=== PATIENT | male | born 1950 | race Caucasian/White ===

== ENCOUNTER → 2018-05-07 12:03 | Outpatient (CLI) | payer OTHER ==
--- NOTE | ~2018-05-07 | HEMODYNAMI ---
PATIENT:ALMA STAHL MEDICAL RECORD: [id number] : 46 [id number] ADMISSION DATE: 05/07/18 Generatedon:05/07/201813:21 Patient name: ALMA STAHL Patient #: [id number] SSN: : 1950 Date of study: 05/07/2018 Page: Of Hemodynamic Procedure Report Patient Data Patient Demographics First Name: ALMA Gender: Male Last Name: MARIBETH : 1950 Middle Initial: JUNIOR Age: 68 year(s) Patient #: [id number] Race: Unknown Additional ID: [id number] Contact details [address]: [address] [place] [address] State: [place] City: [place] Zip code: [address] Past Medical History Allergies Allergen Reaction Date Comments Reported Codeine 05/07/2018 Admission Admission Data Admission Date: 05/07/2018 Admission Time: 12:03 Procedure Procedure Types Cath Procedure Peripheral Cath Diagnostic Procedure Special Shopper Peripheral Procedures Miscellaneous Aspiration/Injection (Joint) Procedure Description Procedure Date Procedure Date: 05/07/2018 Procedure Start Time: 13:02 Procedure Staff Name Function Skyler Lira MD Performing Physician Natalie Mccarthy RT Manager Metrology Katiana Green RN Nurse Procedure Data Cath Procedure Fluoroscopy Diagnostic fluoroscopy Total fluoroscopy Time: 0.5 time: 0.5 min min Diagnostic fluoroscopy Total fluoroscopy dose: 7 dose: 7 mGy mGy Hemodynamics Rest Pre Cath Intra NCS Post Cath Procedure Log Time Note 12:30:02 Time tracking: Regular hours (M-F 7:00 - 5:00) 13:02:10 Patient allergic to Codeine 13:02:17 Is patient on blood thinner?No 13:02:24 Physician arrived 13:02:25 --------ALL STOP TIME OUT------ 13:: Final Timeout: patient, procedure, and site verified with staff and physician. All members of the team are in agreement. 13::34 Procedure started. 13::34 Full Disclosure recording started 13:19:26 Procedure ended.(Physican Out) 13:19:32 Fluoroscopy time 00.50 minutes. 13:19:36 Fluoroscopy dose: 7 mGy 13:19:36 Flurop Dose total: 7 Signature Audit [place] Stage Time Signature Unsigned Intra-Procedure 05/07/2018 Natalie Mccarthy 1:21:06 PM RT(R) [facility] [address] [place] [address]
== END | disposition home or self-care (01) ==
LOC: D.RAD 12:03
PROVIDERS: ATTEND Clinical Nurse Specialist Family Health
DX: M16.11 Unilateral primary osteoarthritis, right hip (principal)

== ENCOUNTER → 2019-06-28 10:14 | Outpatient (CLI) | payer OTHER | END | disposition home or self-care (01) | LOC: D.MRI 10:14 | PROVIDERS: ATTEND Clinical Nurse Specialist Family Health | DX: M54.16 Radiculopathy, lumbar region (principal) ==

== ENCOUNTER 2019-08-25 12:43 | Day surgery (SDC) | payer OTHER ==
[~2019-08-25] VITALS: Ht 180.3 cm; Wt 93.4 kg
--- NOTE | ~2019-08-25 | OP ---
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 PROCEDURE: Right L3-L4 lumbar laminotomy, medial facetectomy and foraminotomy with METRx retractor with discectomy and disc herniation at L3-L4 on the right. SURGEON: Alexandru Mccloud MD INTERIOR DECORATOR PAINTING: Vj Holland APN DESCRIPTION AND TECHNIQUE: After induction of general endotracheal anesthesia, the patient was rolled prone on the Ever frame. Lumbar spine was prepped and draped in usual sterile fashion. Fluoroscopic x-ray and spinal needle localized the L3-L4 interspace on the right side. After infiltration of 1:100,000 epinephrine and 1% lidocaine, a stab incision was created with a #11 blade. Series of dilators were used to advance a METRx retractor at the L3-L4 interspace on the right side. Flow was confirmed with fluoroscopic x-ray. A microscope and Midas Edison drill were used to perform a laminotomy, medial facetectomy and foraminotomy at L3-L4 on the right. Hypertrophied ligamentum flavum was removed with Cloward rongeurs. There was a large foraminal disc herniation within the foramen on the right, between L3 and L4. The subligamentous disc herniation as well as foraminal disc material was removed in a piecemeal fashion. Following this, the L3 nerve roots decompressed well. Meticulous hemostasis was maintained throughout the wound. The wound was irrigated with copious amounts of Ancef irrigant solution. The fascia was closed with 2-0 Vicryl suture, the subdermal layer was closed with 3-0 Vicryl suture. The skin was closed with suha. A sterile dressing was applied to the wound. Vj Holland APN was present throughout the entirety of the procedure and assisted with hemostasis, retraction, and wound closure. TRANSINT:[id number] Voice Confirmation ID: [id number] DOCUMENT ID: [id number] ALEXANDRU MCCLOUD MD CC: [id number] DICTATION DATE: 08/29/19813 OIL AND GAS EXPLORATION TECHNICIAN: 08/29/191951 [facility] 08/26/19 [facility] [address] [place] [address]
[~2019-08-25 12:43] MED LIST: CELEXA20 MG PO; FLUNISOLIDE29 MCG NASAL; GLUCOSAMINE HC500 MG PO; IMURAN50 MG; MOBIC7.5 MG PO; NEURONTIN 300300 MG PO; TRAZODONE HCL150 MG PO
[2019-08-25 13:11] LABS: HEMATOCRIT 49.6 % (42.0-54.0); HEMOGLOBIN 17.2 g/dL (13.5-17.5); MCH 31.9 pg (26.0-34.0); MCHC 34.7 g/dL (31.0-37.0); MCV 91.9 fL (80.0-100.0); RBC 5.4 10x6/uL (4.20-6.10); WBC 5.8 10x3/uL (4.8-10.8)
--- NOTE | 2019-08-25 13:49 | NUR ---
OVERNIGHT STAY IN [facility] 5 WEEKS AGO FOR CLEAN UROLOGY PROCEDURE
[2019-08-25 13:51] VITALS: BP 149/73; Ht 180.3 cm; Wt 93.4 kg
[2019-08-25] MEDS ORDERED: HYDROCODON-ACE1 EA10 PO (20:54)
[2019-08-25] MEDS ORDERED: MEDROL DOSE PACK4 MG PO (20:55)
--- NOTE | 2019-08-26 00:38 | NUR ---
RECIEVED TO ROOM FROM RECOVERY, FOR WAKE UP BED, AROUSES EASILY DENIES PAIN OR NAUSEA, REQUESTING SPRITE GIVEN, VSS, INSTRUCTED WILL NEED TO URINATE BEFOR DISCHARGE
--- NOTE | 2019-08-26 04:35 | NUR ---
VOIDED 100CC CLEAR YELLOW URINE, WENT HOME EARLIER, PT REQUEST NOT TO WAKE HER UP UNTIL LATER TO GO HOME, REMAINS SLEEPY BUT AROUSES EASILY
[2019-08-26 07:51] VITALS: BP 144/63
--- NOTE | 2019-08-26 08:08 | NUR ---
CALLED PATIENTS FOR PATIENT FOR DC. STATED SHE WOULD BE HERE IN AN HOUR. NO COMPLAINTS AT THIS TIME. CALL LIGHT WITHIN REACH.
--- NOTE | 2019-08-26 08:12 | NUR ---
PATIENT IV REMOVED WITH CATH TIP INTACT. WAITING ON TRANSPORTATION FOR DC. CALL LIGHT WITHIN REACH. SONG TO BACK CDI. NO COMPLAINTS OF PAIN, NO SIGNS OF DISTRESS.
--- NOTE | 2019-08-26 09:33 | NUR ---
PATIENT RECIEVED DC INSTRUCTIONS. VERBALIZED UNDERSTANDING. NO QUESTIONS AT THIS TIME. PRESCRIPTION GIVEN TO . DRESSING OFF OF BACK. SONG X 3 CDI. NO COMPLAINTS. ESCORTED PATIENT OUT OF HOSPITAL VIA WC WITH PERSONAL BELONGINGS TO PRIVATE VEHICLE.
== END 2019-08-26 09:30 | disposition home or self-care (01) ==
LOC: D.OPS 12:43 → D.M3 12:43 → D.PAN 15:00 → D.OPS 15:00 → D.PAN 16:00 → D.OPS 17:15 → D.M3 23:59 → D.OPS 08-26 09:30
PROVIDERS: Anesthesiology; ATTEND Neurological Surgery
DX: M51.16 Intervertebral disc disorders with radiculopathy, lumbar region (principal)

== ENCOUNTER → 2019-10-27 12:31 | Outpatient (CLI) | payer OTHER ==
[2019-08-25 13:51] VITALS: BMI 28.8
[~2019-10-27 12:31] MED LIST changes: +HYDROCODON-ACE1 EA10 PO; +MEDROL DOSE PACK4 MG PO
== END | disposition home or self-care (01) ==
LOC: D.MRI 12:31
PROVIDERS: ATTEND Orthopaedic Surgery
DX: M25.561 Pain in right knee (principal)

== ENCOUNTER → 2020-06-21 11:44 | Day surgery (SDC) | payer OTHER ==
[2020-02-03 18:37] VITALS: BMI 29.3
[~2020-06-21 11:44] MED LIST changes: +ACETAMINOPHEN500 M1 PO; +ASCORBIC ACID500 MG PO; +CENTRUM MEN'S1 EACH PO; +ELIQUIS2.5 MG PO; +EZFE 200200 MG PO; -IMURAN50 MG; +IMURAN50 MG PO; +KEFLEX500 MG PO; +MUPIROCIN22 GM TOPICAL; +OXYCODONE HCL10 MG PO; +ZOFRAN ODT4 MG/UDTAB PO
[2020-06-21 12:04] LABS: BASOPHILS 0.4 % (0-2); EOSINOPHILS 3.2 % (0-7); HEMATOCRIT 48.1 % (42.0-54.0); HEMOGLOBIN 16.8 g/dL (13.5-17.5); IMMATURE GRANULOCYTES 0.6 % (0-5); LYMPHOCYTE ABS# 0.93 10x3/uL (1.32-3.57); LYMPHOCYTES 18.5 % (15-50); MCH 31.9 pg (26.0-34.0); MCHC 34.9 g/dL (31.0-37.0); MCV 91.3 fL (80.0-100.0); MEAN PLATELET VOLUME 10.4 fL (7.4-10.4); MONOCYTES 11.5 % (2-11); NEUTROPHIL ABS# 3.32 10x3/uL (1.78-5.38); NEUTROPHILS 65.8 % (40-80); PLATELET COUNT 134 10x3/uL (130-400); RBC 5.27 10x6/uL (4.20-6.10); RDW 12.8 % (11.5-14.5)
[2020-06-21 12:17] LABS: ALBUMIN 3.4 g/dL (3.4-5.0); ANION GAP 8.6 mmol/L (8-16); BILIRUBIN - TOTAL 0.48 mg/dL (0.2-1.3); CALCIUM 8.7 mg/dL (8.5-10.1); CARBON DIOXIDE 31.9 mmol/L (21.0-32.0); CREATININE - SERUM 1.1 mg/dL (0.6-1.3); POTASSIUM - SERUM 4.5 mmol/L (3.5-5.1); PROTEIN - SERUM 6.6 g/dL (6.4-8.2)
== END | disposition home or self-care (01) ==
LOC: D.LAB 11:44
PROVIDERS: ATTEND Internal Medicine Gastroenterology
DX: K50.10 Crohn's disease of large intestine without complications (principal)